=== PATIENT | female | born 1990 | race Caucasian/White ===

== ENCOUNTER 2017-01-03 19:03 | Emergency (ER) | payer MEDICAID ==
[2017-01-03 20:52] LABS: BASOPHIL % 0.3 % (0-2); PLATELET COUNT 237 x10^3mcL (130-400); RED CELL DISTRIBUTION WIDTH 14.2 % (11.5-14.5)
[2017-01-03 21:02] LABS: CALCIUM 8.3 mg/dL (8.5-10.1); CARBON DIOXIDE 24.7 mmol/L (21-32); CHLORIDE SERUM 108 mmol/L (98-107); CREATININE SERUM 0.6 mg/dL (0.6-1.0); GFR1 > 60 mL/min; GLUCOSE SERUM 95 mg/dL (74-106); SODIUM SERUM 143 mmol/L (136-145)
[2017-01-03 21:09] LABS: ALKALINE PHOSPHATASE 94 U/L (46-116); ALT/SGPT 55 U/L (14-59); AST/SGOT 46 U/L (15-37); BILIRUBIN TOTAL 0.34 mg/dL (0.20-1.00); LIPASE 207 IU/L (73-393); TOTAL PROTEIN, SERUM 7.2 g/dL (6.4-8.2)
[2017-01-03 21:18] LABS: ALBUMIN 3.1 g/dL (3.4-5.0)
[2017-01-03 23:23] VITALS: BP 125/79
== END 2017-01-03 23:23 | disposition home or self-care (01) ==
LOC: ED 19:03
PROVIDERS: Emergency Medicine
DX: K29.00 Acute gastritis without bleeding (principal)
CPT/HCPCS: Q0092

== ENCOUNTER 2018-03-27 18:33 | Emergency (ER) | payer OTHER ==
[~2018-03-27] VITALS: Ht 160 cm; Wt 97.5 kg
[2018-03-27 18:47] VITALS: Ht 160 cm; Wt 97.5 kg
[2018-03-27 22:42] VITALS: BP 122/72
== END 2018-03-27 22:42 | disposition home or self-care (01) ==
LOC: ED 18:33
DX: S96.912A Strain of unspecified muscle and tendon at ankle and foot level, left foot, initial encounter (principal); X50.1XXA Overexertion from prolonged static or awkward postures, initial encounter; Y93.01 Activity, walking, marching and hiking; Y92.89 Other specified places as the place of occurrence of the external cause; Y99.8 Other external cause status

== ENCOUNTER 2020-02-09 21:53 | Inpatient (IN) | payer SELFPAY ==
[~2020-02-09] VITALS: Ht 160 cm; Wt 78.9 kg
[2020-02-09 21:55] VITALS: Ht 160 cm; Wt 78.9 kg
--- NOTE | 2020-02-09 22:44 | NUR ---
PATIENT ALERT AND ORIENTED X 4, REPORTS THAT SHE ATE SHRIMP FOR BREAKFAST AND AT LUNCH WAS NOT FEELING WELL AND ATE A SMALL AMOUNT OF SEAFOOD, BEGAN HAVING 7/10 EPIGASTRIC PAIN AND VOMITING. DENIES OTHER SYMPTOMS. NO VOMITING AT PRESENT. BEDSIDE ULTRASOUND IN PROGRESS.
[2020-02-09 22:50] LABS: PLATELET COUNT 269 x10^3mcL (130-400)
[2020-02-09 22:53] LABS: CHLORIDE SERUM 102 mmol/L (98-107); CREATININE SERUM 0.8 mg/dL (0.6-1.0); GFR1 > 60 mL/min; GLUCOSE SERUM 105 mg/dL (74-106); POTASSIUM SERUM 4.1 mmol/L (3.5-5.1); SODIUM SERUM 134 mmol/L (136-145)
[2020-02-09 22:54] LABS: RED CELL DISTRIBUTION WIDTH 14.8 % (11.5-14.5)
[2020-02-09 22:58] LABS: ALBUMIN 3.5 g/dL (3.4-5.0); ALKALINE PHOSPHATASE 73 U/L (46-116); ALT/SGPT 61 U/L (14-59); AST/SGOT 40 U/L (15-37); BILIRUBIN TOTAL 0.22 mg/dL (0.20-1.00); LIPASE 203 IU/L (73-393); TOTAL PROTEIN, SERUM 7.6 g/dL (6.4-8.2)
[2020-02-09 23:07] LABS: BAND NEUTROPHIL 8 % (0-10); MONOCYTE 7 % (0-7); PLATELET MORPHOLOGY PLATELETS NORMAL; SEGMENTED NEUTROPHILS 75 % (37-75); rbc morphology (normal/abnorm) NORMAL (NORMAL)
--- NOTE | 2020-02-09 23:19 | NUR ---
DR BETANCOURT IN WITH PATIENT TO UPDATE ON PLAN OF CARE
--- NOTE | 2020-02-09 23:38 | NUR ---
DR. BETANCOURT AT BEDSIDE.
[2020-02-09] MEDS ORDERED: LEVOTHYROXINE0.05 M2 PO (23:51)
--- NOTE | 2020-02-10 00:33 | NUR ---
ADMITTING MD IN WITH PATIENT.
--- NOTE | 2020-02-10 01:45 | NUR ---
PT FROM ER. TRANSFERED TO BY . MED SURG PT. PT BREATHING EVEN AND UNLABORED ON RA 98% SPO2. NO S/S OF DISTRESS OR DISCOMFORT. PATIENT ABLE TO AMBULATE. AXOX4. GEN WEAKNESS. WARM DRY SKIN. CAP REFILL < 3SEC. IV SL AT THIS TIME IV CDI, PATENT NO S/S OF INFILTRATION. WBC 21.1. PATIENT DENIES PAIN AT THIS TIME. BED IS IN LOW POSITION, SIDE RAILS UP X2, CALL LIGHT WITHIN REACH. WILL CONTINUE TO MONITOR PATIENT AND OFFER SUPPORT.
[2020-02-10 02:59] VITALS: BP 115/66
[2020-02-10 04:21] LABS: CHOLESTEROL/HDL RATIO 3.9
[2020-02-10 04:25] LABS: T3 TOTAL 1.5 ng/mL
[2020-02-10 04:36] LABS: FREE T4 1.25 ng/dL (0.76-1.46); FREE THYROXINE INDEX 3.9 ug/dL (1.4-4.5); T4(THYROXINE) 13.3 ug/dL (4.7-13.3)
[2020-02-10 05:06] VITALS: BP 98/60
--- NOTE | 2020-02-10 06:07 | NUR ---
PT RESTING, EYES CLOSED. NO S/S OF DISTRESS OR DISCOMFORT. PT BREATHING EVEN AND UNLABORED ON RA 97% MED SURG PT. PT ABLE TO AMBULATE. BRP. IV INTACT.
[2020-02-10 07:30] VITALS: BP 103/56
[2020-02-10 07:34] LABS: BASOPHIL % 0.2 % (0-2); PLATELET COUNT 236 x10^3mcL (130-400); RED CELL DISTRIBUTION WIDTH 14.4 % (11.5-14.5)
[2020-02-10 08:15] LABS: CALCIUM 7.9 mg/dL (8.5-10.1); CARBON DIOXIDE 25.7 mmol/L (21-32); CHLORIDE SERUM 105 mmol/L (98-107); CREATININE SERUM 0.7 mg/dL (0.6-1.0); GFR1 > 60 mL/min; GLUCOSE SERUM 93 mg/dL (74-106); POTASSIUM SERUM 4.1 mmol/L (3.5-5.1); SODIUM SERUM 139 mmol/L (136-145)
--- NOTE | 2020-02-10 11:08 | NUR ---
PATIENT IS A 29 YEAR OLD FEMALE THAT WAS ADMITTED LAST NIGHT TO [facility] WITH A CHIEF COMPLAINT OF ABDOMINAL PAIN WITH NAUSEA AND VOMITING. HX OF HYPOTHYROIDISM SO MD STARTED HER THIS AM WITH SYNTHROID 50MCG DAILY. IT WAS GIVEN THIS AM. ABDOMINAL US WAS GIVEN LAST NIGHT SHOWING HEPATOMEGALY AND NO GALLSTONES ARE SEEN. WBC WAS 21.9 BUT TODAY IS LOWER THAN NOC AND WITHIN RANGE. IV INTACT AND PATENT NS RUNNING AT 100CC/HR. PATIENT OVERALL IS CALM AND COOPERATIVE DIET ADVANCED TO CLEAR LIQUID. SHE WAS INFORMED THIS AM.
[2020-02-10 12:14] VITALS: BP 101/70
[2020-02-10] MEDS ORDERED: REGLAN10 M1 PO (15:42)
--- NOTE | 2020-02-10 15:52 | NUR ---
Discount pharmacy card and list to low cost medical clinics given to patient.
--- NOTE | 2020-02-10 16:20 | NUR ---
UPDATE ON DC: ORDER PLACED FROM MD PATIENT WILL DC HOME ON REGLAN 10MG PO FOR FIVE DAYS THEN PATIENT SHOULD FOLLOW UP WITH THERE PCP AFTER SHE LEAVES HOSPTIAL. NO S/S OF DISTRESS NOTED. DC SUMMARY DONE BY MD. WILL GIVE PATIENT DC ORDERS TO SIGN AND SHE CAN ARRANGE SHANK INSPECTOR TO LEAVE.
[2020-02-10 16:22] VITALS: BP 101/70
[2020-02-10 16:48] VITALS: BP 123/72
--- NOTE | 2020-02-10 17:18 | NUR ---
DC PATIENT: PATIENT AWARE OF DC SUMMARY, LEFT WITH BOYFRIEND THAT PICKED HER UP. PATIENT STABLE. IV REMOVED. NO S/S OF DISTRESS NOTED.
== END 2020-02-10 17:18 | disposition home or self-care (01) | DRG 392 ==
LOC: ED 21:53 → MU 02-10 00:05 → EDBEDREQ 02-10 00:34 → MU 02-10 01:35
PROVIDERS: Emergency Medicine; ADMIT Internal Medicine; ATTEND Internal Medicine
DX: K52.9 Noninfective gastroenteritis and colitis, unspecified (principal); E87.1 Hypo-osmolality and hyponatremia; E03.9 Hypothyroidism, unspecified; K80.50 Calculus of bile duct without cholangitis or cholecystitis without obstruction; D72.829 Elevated white blood cell count, unspecified; Z20.828 Contact with and (suspected) exposure to other viral communicable diseases
CPT/HCPCS: 84439; G0378; J0696; J1885; J2270; J2405; J3490; J7030; J7060; Q0092